=== PATIENT | female | born 1990 | race Hispanic/Latino ===

== ENCOUNTER 2016-09-10 15:45 | Emergency (ER) | payer OTHER ==
[2016-09-10 15:45] VITALS: BMI 32.8
[2016-09-10 16:00] VITALS: RESP 18; TEMP 98.1
--- NOTE | 2016-09-10 16:14 | ED PDOC ---
Arrival/HPI - General Historian: Patient - History of Present Illness Time/Duration: > month Symptom Onset: Gradual Quality: Stabbing (headache), Cramping (abdominal pain) <Lynette Schwartz - Last Filed: 09/10/16 21:49> <Kelly Lopez - Last Filed: 09/28/16 09:28> - General Chief Complaint: GI Problem Time Seen by Provider: 09/10/16 16:05 - History of Present Illness Narrative History of Present Illness (Text): 09/10/16 16:44 26 yo morbidly obese F with active tobacco abuse presents to ER with c/o amenorrhea, abdominal pain, headache, dizziness, nausea, and weight gain. Patient states she has always had irregular menstrual periods. She states she took a Plan B pill at the end of March, the second of such medication she has ever taken (first time, she had no problems with it), and she has not had a menstrual period or any spotting since that time. In the past 4-5 weeks, she has been experiencing lower and epigastric abdominal pain and right-sided headache. Headaches are intermittent, sharp, no tearing, associated with nausea , and occasional blurry vision. Bending over makes them worse. Abdominal pain is described as cramping, no radiation of the pain. Epigastric and lower abdominal pain is worse with food and walking. Patient states food has been taking differently lately, and she states thinks have been taking like metal. She also admits to intermittent nausea, vomiting with food intake resulting in decreased PO intake. Admits to chronic constipation, last BM 2 days ago. Patient denies any changes in diet or lifestyle; she states she has gained approximately 40 pounds over the past 2 months. Admits to cold intolerance x 4- 5 months. Patient denies CP, SOB, SARABIA, edema, rashes, pre-syncope, syncope, pleuritic CP, diarrhea, fevers, chills, confusion. Patient states she saw her PMD, Dr Portillo, who referred her to gynecology and neurology; patient has not followed up yet, states she has a neurology appointment next week and still needs to make a gynecology appointment in [place], where her insurance is accepted. Patient had one vaginal delivery 2005 with no complications. (Lynette Schwartz) Past Medical History - Provider Review Nursing Documentation Reviewed: Yes - Travel History Have you recently traveled outside [place] w/in the past 3 mons?: No - Infectious Disease Hx of Infectious Diseases: None - Tetanus Immunization Tetanus Immunization: Unknown - Past Medical History Past Medical History: No Previous - Hematological/Oncological Hx Blood Disorders: No - Integumentary Hx Dermatological Disorder: No - Musculoskeletal/Rheumatological Hx Musculoskeletal Disorders: No - Gastrointestinal Hx Gastrointestinal Disorders: No - Psychiatric Hx Depression: No Hx Emotional Abuse: No Hx Physical Abuse: No Hx Substance Use: No - Past Surgical History Past Surgical History: No Previous - Anesthesia Hx Anesthesia: No - Suicidal Assessment Feels Threatened In Home Enviroment: No <Lynette Schwartz - Last Filed: 09/10/16 21:49> Family/Social History - Physician Review Nursing Documentation Reviewed: Yes Family/Social History: Diabetes, Other (hypothyroidism) Smoking Status: Heavy Smoker > 10 Cigarettes Daily Hx Alcohol Use: No Hx Substance Use: No Hx Substance Use Treatment: No <Lynette Schwartz - Last Filed: 09/10/16 21:49> Allergies/Home Meds <Lynette Schwartz - Last Filed: 09/10/16 21:49> <Kelly Lopez - Last Filed: 09/28/16 09:28> Allergies/Adverse Reactions: Allergies No Known Allergies Allergy (Verified 09/10/16 16:00) Review of Systems - Physician Review All systems were reviewed & negative as marked: Yes - Review of Systems Constitutional: Weight Change. absent: Fatigue, Fevers Eyes: Vision Changes (occasional blurry vision in right eye with right-sided headaches). absent: Photophobia, Eye Pain ENT: absent: Tinnitus, Sore Throat, Epistaxis Respiratory: absent: SOB, Cough, Sputum Cardiovascular: absent: Chest Pain, Palpitations, Edema, Calf Pain, SARABIA, Syncope Gastrointestinal: Abdominal Pain (epigastric and lower abdomen), Constipation ( last BM 2 days ago), Nausea, Vomiting. absent: Diarrhea, Hematochezia, Hematemesis Genitourinary Female: absent: Dysuria, Frequency, Hematuria, Vaginal Bleeding ( amenorrhea x 5 months) Musculoskeletal: absent: Back Pain, Neck Pain, Joint Swelling Skin: absent: Rash, Skin Lesions Neurological: Headache (right-sided (see HPI)), Dizziness. absent: Focal Weakness, Disequilibrium Endocrine: absent: Diaphoresis, Polyuria Hemo/Lymphatic: absent: Easy Bleeding, Easy Bruising Psychiatric: absent: Anxiety, Depression <Lynette Schwartz - Last Filed: 09/10/16 21:49> Physical Exam Vital Signs Reviewed: Yes Temperature: Afebrile Blood Pressure: Normal Pulse: Regular Respiratory Rate: Normal Appearance: Positive for: Well-Appearing, Non-Toxic, Comfortable Pain Distress: None Mental Status: Positive for: Alert and Oriented X 3 - Systems Exam Head: Present: Atraumatic, Normocephalic Pupils: Present: PERRL Extroacular Muscles: Present: EOMI. No: Gaze Palsy Conjunctiva: Present: Normal. No: Icteric Mouth: Present: Moist Mucous Membranes Neck: Present: Normal Range of Motion. No: Meningeal Signs, JVD Respiratory/Chest: Present: Clear to Auscultation, Good Air Exchange. No: Respiratory Distress, Accessory Muscle Use Cardiovascular: Present: Regular Rate and Rhythm, Normal S1, S2 Abdomen: Present: Tenderness (epigastrium and lower abdomen), Normal Bowel Sounds. No: Distention, Peritoneal Signs, Rebound, Guarding Upper Extremity: Present: Normal Inspection, NORMAL PULSES. No: Cyanosis, Edema Lower Extremity: Present: Normal Inspection, NORMAL PULSES. No: Edema, CALF TENDERNESS Neurological: Present: GCS=15, CN II-XII Intact, Speech Normal Skin: Present: Warm, Dry, Normal Color. No: Rashes Lymphatic: No: Cervical Adenopathy Psychiatric: Present: Alert, Oriented x 3, Normal Insight, Normal Concentration <Lynette Schwartz - Last Filed: 09/10/16 21:49> Medical Decision Making - Lab Interpretations I have reviewed the lab results: Yes <Lynette Schwartz - Last Filed: 09/10/16 21:49> - Lab Interpretations I have reviewed the lab results: Yes <Kelly Lopez - Last Filed: 09/28/16 09:28> ED Course and Treatment: 09/10/16 17:52 26 yo morbidly obese F with active tobacco abuse presents to ER with c/o amenorrhea, abdominal pain, headache, dizziness, nausea, and weight gain. CT head without contrast to evaluate for pituitary lesion. Labs, HCG, abdominal and pelvic US. Zofran, Protonix, IVF. 09/10/16 19:19 Lab and imaging findings discussed with patient. Will send for CT A/P with IV contrast to r/o intrabdominal source of leukocytosis and pain. If CT A/P is negative, patient will need to followup outpatient with Gynecology and neurology as previously instructed for further workup. Patient expressed understanding and is agreement with the aforementioned plan. (Lynette Schwartz) Patient seen and examined with medical assistant dermatology. On exam, neurologically intact with no focal weakness, no peritoneal abdominal signs, cv stable. Symptoms reviewed extensively, discussed with her in length need for endocrinologic workup as weel as limitations of CT studies. She is comfortable on re-exam, no distress noted, discussed with PMD need for follow-up she has been referred to specialists. (Kelly Lopez) - Lab Interpretations Microbiology Results: Microbiology Results 09/10/16 18:21 Urine Urine Culture - Final No Growth (<1,000 CFU/ML) Lab Results: 09/10/16 17:35 09/10/16 17:35 Lab Results 09/10/16 18:19: Urine Color Yellow, Urine Appearance Clear, Urine pH 6.0, Ur Specific [place] 1.025, Urine Protein Negative, Urine Glucose (UA) Negative, Urine Ketones Negative, Urine Blood Negative, Urine Nitrate Negative, Urine Bilirubin Negative, Urine Urobilinogen 0.2, Ur Leukocyte Esterase Negative, Urine HCG, Qual Negative 09/10/16 17:35: Free T4 0.96, TSH 3rd Generation 2.56, Beta HCG, Quant < 2.39 09/10/16 17:35: Sodium 138, Potassium 4.1, Chloride 100, Carbon Dioxide 28, Anion Gap 14, BUN 13, Creatinine 0.8, Est GFR ( Amer) > 60, Est GFR (Non- Af Amer) > 60, Random Glucose 78, Calcium 10.0, Total Bilirubin 0.6, AST 26, ALT 38, Alkaline Phosphatase 102, Total Protein 8.7 H, Albumin 4.4, Globulin 4.4 , Albumin/Globulin Ratio 1.0 L, Lipase 69 09/10/16 17:35: PT 10.3, INR 0.95, APTT 24.8 09/10/16 17:35: WBC 17.7 H, RBC 4.84, Hgb 15.3, Hct 42.0, MCV 86.8, MCH 31.6, MCHC 36.4, RDW 12.3, Plt Count 405, MPV 9.7, Gran % 67.6, Lymph % (Auto) 22.0, [place] % (Auto) 9.0 H, Eos % (Auto) 1.2 L, Baso % (Auto) 0.2, Gran # 11.99 H, Lymph # 3.9 H, [place] # 1.6 H, Eos # 0.2, Baso # 0.03 - RAD Interpretation Radiology Orders: 09/10/16 16:50 HEAD W/O CONTRAST [CT] Stat 09/10/16 16:57 ABDOMEN COMPLETE [US] Stat PELVIS ULTRASOUND [US] Routine 09/10/16 19:03 ABD & PELVIS IV CONTRAST ONLY [CT] Stat - Medication Orders Current Medication Orders: Discontinued Medications Sodium Chloride (Sodium Chloride 0.9%) 1,000 mls @ 999 mls/hr IV .Q1H1M STA Stop: 09/10/16 17:50 Last Admin: 09/10/16 17:38 Dose: 999 mls/hr Iohexol (Omnipaque 350 100 Ml) Confirm Administered Dose 350 mg .ROUTE .STK-MED ONE Stop: 09/10/16 19:23 Meclizine HCl (Antivert) 25 mg PO STAT STA Stop: 09/10/16 19:28 Last Admin: 09/10/16 19:35 Dose: 25 mg Ondansetron HCl (Zofran Inj) 4 mg IVP ONCE ONE Stop: 09/10/16 16:51 Last Admin: 09/10/16 17:38 Dose: 4 mg Pantoprazole Sodium (Protonix Inj) 40 mg IVP STAT STA Stop: 09/10/16 16:51 Last Admin: 09/10/16 17:38 Dose: 40 mg ED OBSERVATION <Lynette Schwartz - Last Filed: 09/10/16 21:49> Date of observation admission: 09/10/16 Time of observation admission: 16:30 <Kelly Lopez - Last Filed: 09/28/16 09:28> - Observation admission statement Patient is being placed in observation because:: abdominal pain (Kelly Lopez) - Goals of Observation Goals of observation are:: pain management and obtain series of abdominal examinations (Kelly Lopez) - Progress Note Progress Note: 09/10/16 16:30 Patient seen and examined with resident. Came up with treatment and disposition plan with resident. The patient is a 26 year old female with multiple complaints. She complains of amenorrhea, abdominal pain, headache, dizziness, nausea and weight gain. Additional HPI details as noted by the resident. Physical examinations reveals some tenderness with palpation to the epigastric and lower abdomen. Head CT, Abdomen/Pelvic ultrasound, Labs and HCG Beta ordered to rule out intracranial mass/abnormalities vs. infections vs. vs. ovarian cyst. Patient given Protonix, Zofran and IV Fluids for symptom management. 09/10/16 18:[address]: Creator : David Moctezuma MD COMPARISON: None available. FINDINGS: HEMORRHAGE: No intracranial hemorrhage. BRAIN: No mass effect or edema. No atrophy or chronic microvascular ischemic changes. VENTRICLES: Unremarkable. No hydrocephalus. CALVARIUM: Unremarkable. PARANASAL SINUSES: Unremarkable as visualized. No significant inflammatory changes. MASTOID AIR CELLS: Unremarkable as visualized. No inflammatory changes. OTHER FINDINGS: None. IMPRESSION: Normal CT of the Head. 09/10/16 19:00 Abdomen Ultrasound: Creator : Nathan Boyd MD COMPARISON: None. FINDINGS: LIVER: Measures 14.9 cm. Hepatopedal blood flow. Fatty infiltration manifest ultrasonographically as increased echogenicity of the liver parenchyma. No mass. No intrahepatic bile duct dilatation. GALLBLADDER: Unremarkable. No gallstones. COMMON BILE DUCT: Measures 2.6 mm. No stones. No dilatation. PANCREAS: Unremarkable as visualized. No mass. No ductal dilatation. RIGHT KIDNEY: Measures 3.5 x 9.2cm. Normal echogenicity. No calculus, mass, or hydronephrosis. LEFT KIDNEY: Measures 5.5 x 11.3cm. Normal echogenicity. No calculus, mass, or hydronephrosis. SPLEEN: Normal in size and contour. No mass. AORTA: No aneurysmal dilatation. IVC: Unremarkable. OTHER FINDINGS: None. IMPRESSION: Hepatic steatosis. No focal masses. No intrahepatic bile duct dilatation or perihepatic ascites. 09/10/16 19:03 On reevaluation, the patient still complains of persistent pain. Patient has a elevated WBC count of 17. Will obtain abdomen CT due to leukocytosis and persistent pain. 09/10/16 21:00 Pelvis Ultrasound: Dictated and Authenticated by: Brian Zuleta MD COMPARISON: No relevant prior studies available. FINDINGS: Uterus/cervix: Uterus measures 7.9 x 2.6 x 4.1 cm in size. No myometrial mass. Endometrium: 0.5 cm in thickness. Right ovary: 2.7 x 1.9 x 3.3 cm in size. No mass. Normal flow. Left ovary: 4.0 x 2.8 x 1.5 cm in size. No mass. Normal flow. Free fluid: No significant free fluid. Bladder: Unremarkable as visualized. IMPRESSION: 1. No acute findings. 2. Non-acute findings are described above. Abdomen/Pelvis CT: Dictated and Authenticated by: Phil Mckee MD COMPARISON: US - PELVIS ULTRASOUND 09/10/2016 6:18:31 PM FINDINGS: Lower thorax: Minimal atelectasis in the bases. ABDOMEN: Liver: There is mild fatty infiltration of the liver Gallbladder and bile ducts: Unremarkable. No calcified stones. No ductal dilation. Pancreas: Unremarkable. No mass. No ductal dilation. Spleen: Unremarkable. No splenomegaly. Adrenals: Unremarkable. No mass. Kidneys and ureters: Unremarkable. No solid mass. No hydronephrosis. Stomach and bowel: Unremarkable. No obstruction. No mucosal thickening. Appendix: No findings to suggest acute appendicitis. PELVIS: Bladder: Unremarkable. No mass. Reproductive: Unremarkable as visualized. ABDOMEN and PELVIS: Intraperitoneal space: Unremarkable. No free air. No significant fluid collection. Bones/joints: No acute fracture. No dislocation. Soft tissues: Unremarkable. Vasculature: Unremarkable. No abdominal aortic aneurysm. Lymph nodes: Unremarkable. No enlarged lymph nodes. IMPRESSION: No acute findings. Mild fatty liver (Kelly Lopez) <Lynette Schwartz - Last Filed: 09/10/16 21:49> - Scribe Statement The provider has reviewed the documentation as recorded by the Scribe <Kelly Lopez - Last Filed: 09/28/16 09:28> - Scribe Statement Carmine Truong Provider Scribe Attestation: All medical record entries made by the Scribe were at my direction and personally dictated by me. I have reviewed the chart and agree that the record accurately reflects my personal performance of the history, physical exam, medical decision making, and the department course for this patient. I have also personally directed, reviewed, and agree with the discharge instructions and disposition. (Kelly Lopez) Disposition/Present on Arrival - Present on Arrival Any Indicators Present on Arrival: No History of DVT/PE: No History of Uncontrolled Diabetes: No Urinary Catheter: No History of Decub. Ulcer: No History Surgical Site Infection Following: None - Disposition Have Diagnosis and Disposition been Completed?: Yes Disposition Time: 21:31 Patient Plan: Discharge <MandiekylerLynette walters - Last Filed: 09/10/16 21:49> <Kelly Lopez - Last Filed: 09/28/16 09:28> - Disposition Diagnosis: Abdominal pain, Amenorrhea Disposition: HOME/ ROUTINE Condition: STABLE Discharge Instructions (ExitCare): Acute Abdominal Pain (ED), Abdominal Pain ( ED), Amenorrhea (GEN) Print Language: HONDURAN Additional Instructions: Please followup with your primary care physician within 1-3 days. Please followup with gynecology and neurology as previously scheduled. Referrals: Pedro Portillo JD, MD [Primary Care Provider] - Follow up with primary
[2016-09-10] MEDS ORDERED: Sodium Chloride 0.9% 1,000 ML IV STA (16:50)
[2016-09-10 17:43] LABS: ADD MANUAL DIFF? NO
[2016-09-10 17:47] LABS: BASO # 0.03 K/mm3 (0.0-2.0); BASO % 0.2 % (0.0-3.0); EOS # 0.2 (0.0-0.7); EOS % 1.2 % (1.5-5.0); GRAN # 11.99 (1.4-6.5); GRAN % 67.6 % (50.0-68.0); LYMPH # 3.9 (1.2-3.4); MEAN CELL VOLUME 86.8 fL (80.0-105.0); MEAN CORPUSCULAR HEMOGLOBIN 31.6 pg (25.0-35.0); MEAN CORPUSCULAR HGB CONC 36.4 g/dl (31.0-37.0); MEAN PLATELET VOLUME 9.7 fl (7.0-11.0); MONO # 1.6 (0.1-0.6); PLATELET COUNT 405 10^3/uL (120.0-450.0); RED CELL DISTRIBUTION WIDTH 12.3 % (11.5-14.5); WHITE BLOOD COUNT 17.7 10^3/ul (4.5-11.0)
[2016-09-10 17:56] LABS: ALKALINE PHOSPHATASE 102 U/L (38-133); ALT/SGPT 38 U/L (7-56); AST/SGOT 26 U/L (15-39); BILIRUBIN,TOTAL 0.6 mg/dL (0.2-1.3); BLOOD UREA NITROGEN 13 mg/dL (7-21); CARBON DIOXIDE 28 mmol/L (21-33); CHLORIDE 100 mmol/L (98-107); GFR AFRICAN-AMERICAN > 60; GLUCOSE,RANDOM 78 mg/dL (70-110); LIPASE 69 U/L (23-300); POTASSIUM 4.1 mmol/L (3.6-5.0); SODIUM 138 mmol/L (132-148); TOTAL PROTEIN 8.7 g/dL (5.8-8.3)
[2016-09-10 17:59] LABS: INR 0.95 (0.93-1.08); PARTIAL THROMBOPLASTIN TIME 24.8 Seconds (23.7-30.8)
--- NOTE | 2016-09-10 18:03 | CT ---
PROCEDURE: CT HEAD WITHOUT CONTRAST. HISTORY: headache, dizziness COMPARISON: None available. TECHNIQUE: Axial computed tomography images were obtained through the head/brain without intravenous contrast. Radiation dose: Total exam DLP = 787 mGy-cm. This CT exam was performed using one or more of the following dose reduction techniques: Automated exposure control, adjustment of the mA and/or kV according to patient size, and/or use of iterative reconstruction technique. FINDINGS: HEMORRHAGE: No intracranial hemorrhage. BRAIN: No mass effect or edema. No atrophy or chronic microvascular ischemic changes. VENTRICLES: Unremarkable. No hydrocephalus. CALVARIUM: Unremarkable. PARANASAL SINUSES: Unremarkable as visualized. No significant inflammatory changes. MASTOID AIR CELLS: Unremarkable as visualized. No inflammatory changes. OTHER FINDINGS: None. IMPRESSION: Normal CT of the Head.
[2016-09-10 18:13] LABS: FREE T4 0.96 ng/dL (0.78-2.19)
[2016-09-10 18:27] LABS: THYROID STIMULATING HORMONE 2.56 mIU/mL (0.46-4.68)
[2016-09-10 18:37] LABS: URINE BILIRUBIN NEGATIVE (NEGATIVE); URINE BLOOD NEGATIVE (NEGATIVE); URINE GLUCOSE (UA) NEGATIVE (NEGATIVE); URINE KETONE NEGATIVE (NEGATIVE); URINE LEUKOCYTE ESTERASE NEGATIVE Leu/uL (NEGATIVE); URINE PROTEIN NEGATIVE mg/dL (<30 mg/dL); URINE UROBILINOGEN 0.2 E.U./dL (<1 E.U./dL)
[2016-09-10 18:38] LABS: URINE APPEARANCE CLEAR (CLEAR); URINE COLOR YELLOW (YELLOW)
--- NOTE | 2016-09-10 18:53 | US ---
HISTORY: Unspecified abdominal pain. COMPARISON: None. TECHNIQUE: Sonographic evaluation of the abdomen. FINDINGS: LIVER: Measures 14.9 cm. Hepatopedal blood flow. Fatty infiltration manifest ultrasonographically as increased echogenicity of the liver parenchyma. No mass. No intrahepatic bile duct dilatation. GALLBLADDER: Unremarkable. No gallstones. COMMON BILE DUCT: Measures 2.6 mm. No stones. No dilatation. PANCREAS: Unremarkable as visualized. No mass. No ductal dilatation. RIGHT KIDNEY: Measures 3.5 x 9.2cm. Normal echogenicity. No calculus, mass, or hydronephrosis. LEFT KIDNEY: Measures 5.5 x 11.3cm. Normal echogenicity. No calculus, mass, or hydronephrosis. SPLEEN: Normal in size and contour. No mass. AORTA: No aneurysmal dilatation. IVC: Unremarkable. OTHER FINDINGS: None. IMPRESSION: Hepatic steatosis. No focal masses. No intrahepatic bile duct dilatation or perihepatic ascites.
[2016-09-10] MEDS ORDERED: Iohexol 350 MG/100 ML VIAL ONE (19:22)
[2016-09-10 20:16] VITALS: BP 124/71; PULSE 74; O2SAT 100
--- NOTE | 2016-09-10 20:59 | US ---
EXAM: US Pelvis Complete, Transabdominal CLINICAL HISTORY: 26 years old, female; Pain; Abdominal pain and pelvic pain; Lower abdomen; Additional info: Abd pain, amennorhea TECHNIQUE: Real-time transabdominal pelvic ultrasound (complete) with image documentation. COMPARISON: No relevant prior studies available. FINDINGS: Uterus/cervix: Uterus measures 7.9 x 2.6 x 4.1 cm in size. No myometrial mass. Endometrium: 0.5 cm in thickness. Right ovary: 2.7 x 1.9 x 3.3 cm in size. No mass. Normal flow. Left ovary: 4.0 x 2.8 x 1.5 cm in size. No mass. Normal flow. Free fluid: No significant free fluid. Bladder: Unremarkable as visualized. IMPRESSION: 1.No acute findings. 2.Non-acute findings are described above.
--- NOTE | 2016-09-11 07:31 | CT ---
PROCEDURE: CT Abdomen and Pelvis with contrast HISTORY: abdominal pain, leukocytosis COMPARISON: None available. TECHNIQUE: Contrast dose: 100 mL Omnipaque 350 Radiation dose: Total exam DLP = 1272.62 mGy-cm. This CT exam was performed using one or more of the following dose reduction techniques: Automated exposure control, adjustment of the mA and/or kV according to patient size, and/or use of iterative reconstruction technique. FINDINGS: LOWER THORAX: Minimal dependent atelectasis. No visible pleural effusion or pneumothorax. LIVER: Mild hypoattenuation of the liver compatible with hepatic steatosis. GALLBLADDER AND BILE DUCTS: Unremarkable. PANCREAS: Unremarkable. SPLEEN: 10 mm and 11 mm probable splenules. Otherwise unremarkable. ADRENALS: Unremarkable. KIDNEYS AND URETERS: The kidneys enhance symmetrically. No hydronephrosis or obstructing calculus evident. VASCULATURE: No aortic aneurysm. BOWEL: Stomach is nondistended. Lack of oral contrast limits evaluation for bowel pathology. Bowel loops appear within normal limits of caliber without evidence of obstruction. APPENDIX: Appendix is not identified. No secondary signs of acute appendicitis. PERITONEUM: With up LYMPH NODES: No bulky adenopathy identified. BLADDER: Marked underdistention of the urinary bladder precludes adequate evaluation. Thick-walled appearance of the bladder likely exaggerated by under distension. REPRODUCTIVE: The uterus is present. BONES: No acute osseous abnormality is detected. OTHER FINDINGS: None. IMPRESSION: Thick-walled urinary bladder presumably due to underdistention. Correlate clinically and consider urinalysis if necessary in order to exclude possibility of cystitis. Hepatic steatosis. Preliminary impression was provided by virtual radiologic.
[2016-09-11 11:33] LABS: FT3 4.03 pg/mL (2.77-5.27)
== END 2016-09-10 21:45 | disposition home or self-care (01) ==
LOC: ED 15:45
DX: R10.9 Unspecified abdominal pain (principal); N91.2 Amenorrhea, unspecified
CPT/HCPCS: 70450; 74177; 76700; 76856; 80053; 81003; 83690; 84439; 84443; 84481; 84702; 84703; 85025; 85610; 85730; 87086; 96361; 96374; 96375; 99284; C9113; J2405; J7040; Q9967

== ENCOUNTER 2016-10-28 10:40 | Emergency (ER) | payer OTHER ==
[2016-10-28 10:40] VITALS: BMI 32.8
[2016-10-28 10:48] VITALS: TEMP 97.9
--- NOTE | 2016-10-28 11:16 | CT ---
PROCEDURE: CT HEAD WITHOUT CONTRAST. HISTORY: Code Stroke COMPARISON: 09/10/2016 TECHNIQUE: Axial computed tomography images were obtained through the head/brain without intravenous contrast. Radiation dose: Total exam DLP = 688 mGy-cm. This CT exam was performed using one or more of the following dose reduction techniques: Automated exposure control, adjustment of the mA and/or kV according to patient size, and/or use of iterative reconstruction technique. FINDINGS: HEMORRHAGE: No intracranial hemorrhage. BRAIN: No mass effect or edema. No atrophy or chronic microvascular ischemic changes. VENTRICLES: Unremarkable. No hydrocephalus. CALVARIUM: Unremarkable. PARANASAL SINUSES: Unremarkable as visualized. No significant inflammatory changes. MASTOID AIR CELLS: Unremarkable as visualized. No inflammatory changes. OTHER FINDINGS: None. IMPRESSION: Normal CT of the Head.
[2016-10-28 11:28] LABS: ADD MANUAL DIFF? NO
[2016-10-28 11:29] LABS: BASO # 0.03 K/mm3 (0.0-2.0); BASO % 0.2 % (0.0-3.0); EOS # 0.2 (0.0-0.7); EOS % 1.7 % (1.5-5.0); GRAN # 9.76 (1.4-6.5); GRAN % 67.5 % (50.0-68.0); LYMPH # 3.4 (1.2-3.4); LYMPH % 23.8 % (22.0-35.0); MEAN CELL VOLUME 88.2 fL (80.0-105.0); MEAN CORPUSCULAR HEMOGLOBIN 31.4 pg (25.0-35.0); MEAN CORPUSCULAR HGB CONC 35.6 g/dl (31.0-37.0); MEAN PLATELET VOLUME 9.7 fl (7.0-11.0); MONO % 6.8 % (1.0-6.0); PLATELET COUNT 343 10^3/uL (120.0-450.0); RED CELL DISTRIBUTION WIDTH 12.4 % (11.5-14.5); WHITE BLOOD COUNT 14.5 10^3/ul (4.5-11.0)
[2016-10-28 11:40] LABS: INR 0.99 (0.93-1.08); PARTIAL THROMBOPLASTIN TIME 30.7 Seconds (23.7-30.8)
[2016-10-28 11:41] LABS: ALB/GLOB RATIO 1.1 (1.1-1.8); ALKALINE PHOSPHATASE 90 U/L (38-133); ALT/SGPT 47 U/L (7-56); AST/SGOT 36 U/L (15-39); BILIRUBIN,TOTAL 0.4 mg/dL (0.2-1.3); BLOOD UREA NITROGEN 11 mg/dL (7-21); CALCIUM 9.2 mg/dL (8.4-10.5); CARBON DIOXIDE 23 mmol/L (21-33); CHLORIDE 106 mmol/L (98-107); CHOLESTEROL 143 mg/dL (130-200); GFR AFRICAN-AMERICAN > 60; GLUCOSE,RANDOM 101 mg/dL (70-110); POTASSIUM 3.9 mmol/L (3.6-5.0); SODIUM 138 mmol/L (132-148); TOTAL PROTEIN 7.6 g/dL (5.8-8.3)
[2016-10-28 11:54] LABS: TROPONIN I < 0.01 ng/mL
--- NOTE | 2016-10-28 11:54 | ED PDOC ---
Arrival/HPI - General Chief Complaint: Syncope Time Seen by Provider: 10/28/16 10:53 Historian: Patient - History of Present Illness Narrative History of Present Illness (Text): 10/28/16 10:51 A 26 year old female, whose past medical history includes "some kind of neurological issue," who presents to the emergency department complaining of a headache that shoots up from the neck up and into the right eye. Patient reports headache has been present for the past two week but worsen last night. She took a Advil last night and this morning for the pain. Patient say last night she felt a "pop" in the head but she was able to go to sleep without difficulty. Patient notes this morning she developed some dizziness and then while walking to the light rail she started to get blurry vision of the right eye, started to feel weak on the right side and then syncopized. Patient believe she only lost consciousness for about a minute. She denies any headache trauma. Patient says currently the light and noise is bother her. She denies any fever, chills, change in speech, numbness or any other complaints at this time. PMD: Dr. Portillo Time/Duration: > week Symptom Onset: Sudden Symptom Course: Worsening Quality: Other Activities at Onset: Rest Context: Home Past Medical History - Provider Review Nursing Documentation Reviewed: Yes - Infectious Disease Hx of Infectious Diseases: None - Tetanus Immunization Tetanus Immunization: Unknown - Past Medical History Past Medical History: No Previous - Hematological/Oncological Hx Blood Disorders: No - Integumentary Hx Dermatological Disorder: No - Musculoskeletal/Rheumatological Hx Musculoskeletal Disorders: No - Gastrointestinal Hx Gastrointestinal Disorders: No - Psychiatric Hx Depression: No Hx Emotional Abuse: No Hx Physical Abuse: No Hx Substance Use: No - Past Surgical History Past Surgical History: No Previous - Anesthesia Hx Anesthesia: No - Suicidal Assessment Feels Threatened In Home Enviroment: No Family/Social History - Physician Review Nursing Documentation Reviewed: Yes Family/Social History: Unknown Family HX Smoking Status: Heavy Smoker > 10 Cigarettes Daily Hx Alcohol Use: No Hx Substance Use: No Hx Substance Use Treatment: No Allergies/Home Meds Allergies/Adverse Reactions: Allergies No Known Allergies Allergy (Verified 10/28/16 10:42) Home Medications: Home Meds Medication Instructions Recorded Confirmed No Known Home Med 10/28/16 10/28/16 Review of Systems - Physician Review All systems were reviewed & negative as marked: Yes - Review of Systems Constitutional: absent: Fevers Eyes: Vision Changes, Photophobia Respiratory: absent: SOB Cardiovascular: Syncope. absent: Chest Pain Neurological: Headache, Dizziness, Focal Weakness (right side). absent: Speech Changes Physical Exam Vital Signs Reviewed: Yes Vital Signs Temp Pulse Resp BP Pulse Ox 10/28/16 13:10 67 18 139/59 L 98 10/28/16 11:25 66 16 138/78 98 10/28/16 10:43 97.9 F 79 16 135/87 98 Temperature: Afebrile Blood Pressure: Normal Pulse: Regular Respiratory Rate: Normal Appearance: Positive for: Well-Appearing, Non-Toxic, Comfortable Pain Distress: None Mental Status: Positive for: Alert and Oriented X 3 Finger Stick Blood Glucose: 107 - Systems Exam Head: Present: Atraumatic, Normocephalic Pupils: Present: PERRL Extroacular Muscles: Present: EOMI Conjunctiva: Present: Normal Ears: Present: Normal, NORMAL TM Mouth: Present: Moist Mucous Membranes Pharnyx: Present: Normal. No: ERYTHEMA Nose (Internal): Present: Normal Inspection Neck: Present: Normal Range of Motion. No: Bruit Respiratory/Chest: Present: Clear to Auscultation, Good Air Exchange. No: Respiratory Distress, Accessory Muscle Use Cardiovascular: Present: Regular Rate and Rhythm, Normal S1, S2. No: Murmurs Abdomen: Present: Normal Bowel Sounds. No: Tenderness, Distention, Peritoneal Signs Back: Present: Normal Inspection Upper Extremity: Present: Normal Inspection, Normal ROM, NORMAL PULSES, Neurovascularly Intact. No: Cyanosis, Edema Lower Extremity: Present: Normal Inspection, NORMAL PULSES, Normal ROM, Neurovascularly Intact. No: Edema Neurological: Present: GCS=15, CN II-XII Intact, Speech Normal, Motor Func Grossly Intact, Normal Sensory Function, Normal Cerebellar Funct, Gait Normal, Memory Normal, Normal 2Pt Descrimination Skin: Present: Warm, Dry, Normal Color. No: Rashes Psychiatric: Present: Alert, Oriented x 3, Normal Insight, Normal Concentration Medical Decision Making ED Course and Treatment: 10/28/16 10:51 Impression: A 26 year old female with headache, dizziness, syncope, vision changes and right sided weakness. Differential Diagnosis include but are not limited to: CVA vs Headache/Migraine vs Syncope Plan: -- EKG -- Head CT -- Chest X-ray -- Labs -- Reassess and disposition Prior Visits: Notes and results from previous visits were reviewed. The patient last presented to the emergency department on 09/10/16 for evaluation of amenorrhea, abdominal pain, headache, dizziness, nausea and weight gain. Progress Notes: EKG: Ordered, reviewed, and independently interpreted the EKG. Rate : 78 BPM Rhythm : NSR Interpretation : No ST-segment elevations or depressions, no T-wave inversions, normal intervals. 10/28/16 10:58 Code Stroke called secondary to new evolving symptoms even though headache was not new. 10/28/16 11:[address]: Creator : David Moctezuma MD COMPARISON: 09/10/2016 FINDINGS: HEMORRHAGE: No intracranial hemorrhage. BRAIN: No mass effect or edema. No atrophy or chronic microvascular ischemic changes. VENTRICLES: Unremarkable. No hydrocephalus. CALVARIUM: Unremarkable. PARANASAL SINUSES: Unremarkable as visualized. No significant inflammatory changes. MASTOID AIR CELLS: Unremarkable as visualized. No inflammatory changes. OTHER FINDINGS: None. IMPRESSION: Normal CT of the Head. 10/28/16 11:[address] Shayla Porras, who is agrees with plan and recommends MRI without and with contrast and MRA of the head and neck without contrast. Patient is not a tPA candidate do to fast resolution of symptoms and NIHSS score of 0. On arrival she no longer had the right eye blurry vision but still had some sensation of weakness of right body . 5/5 MS. No drift. 10/28/16 12:20 Chest X-ray: Creator : David Moctezuma MD COMPARISON: No prior. FINDINGS: LUNGS: No active pulmonary disease. PLEURA: No significant pleural effusion identified, no pneumothorax apparent. CARDIOVASCULAR: Normal. OSSEOUS STRUCTURES: No significant abnormalities. VISUALIZED UPPER ABDOMEN: Normal. OTHER FINDINGS: None. IMPRESSION: No active disease. 10/28/16 13:10 MRI Brain: Creator : David Moctezuma MD COMPARISON: None. FINDINGS: HEMORRHAGE: None DWI: No evidence of an acute or early subacute infarction. BRAIN PARENCHYMA: No mass,mass effect or edema. No atrophy or chronic microvascular ischemic changes. ENHANCEMENT: No abnormal intracranial enhancement. VENTRICLES: Unremarkable. No hydrocephalus. CRANIUM: Unremarkable. ORBITS: Grossly unremarkable. PARANASAL SINUSES/MASTOIDS: Clear VASCULAR SYSTEM: Skull base flow voids intact. OTHER FINDINGS: None . IMPRESSION: Unremarkable pre and post contrast enhanced MRI of the brain. 10/28/16 13:11 MRA Brain: Creator : David Moctezuma MD COMPARISON: None available. FINDINGS: INTERNAL CEREBRAL ARTERIES: Unremarkable. The skull base, petrous, cavernous and supraclinoid segments are bilaterally widely patient. ANTERIOR CEREBRAL ARTERIES: Unremarkable. A1 and A2 segments are widely patent. Smaller distal branches unremarkable, as visualized. MIDDLE CEREBRAL ARTERIES: Unremarkable. M1 and M2 segments are widely patent. Perisylvian branches grossly symmetric. POSTERIOR CIRCULATION: Basilar Artery: Unremarkable. Distal Vertebral Arteries: Unremarkable. Posterior Cerebral Arteries: Unremarkable. Posterior Inferior Cerebellar Arteries: Unremarkable. ANEURYSM/ VASCULAR MALFORMATIONS: None. OTHER FINDINGS: None. IMPRESSION: Unremarkable MR angiography of the brain. 10/28/16 13:13 MRA Neck: Creator : David Moctezuma MD COMPARISON: None available. FINDINGS: RIGHT CAROTID ARTERIES: Common Carotid Artery: Normal. Carotid Bifurcation: Normal. Internal Carotid Artery:Normal. External Carotid Artery (proximal branches): Normal. LEFT CAROTID ARTERIES: Common Carotid Artery: Normal. Carotid Bifurcation: Normal. Internal Carotid Artery:Normal. External Carotid Artery (proximal branches): Normal. VERTEBRAL ARTERIES: Right Vertebral Artery: Normal. Left Vertebral Artery: Normal. OTHER FINDINGS: None. IMPRESSION: Normal MR Angiography of the neck. 10/28/16 13:32 On re-evaluation, the patient feels better and is in no acute distress. NIHSS repeat is Zero. No longer has sensation of right sided weakness after given treatment for her headache. She improved with Benadryl, Reglan, and Tylenol. I have discussed the results and plan with the patient, who expresses understanding. Patient in agreement with plan to discharged home.She has a neurologist appt already set up for tomorrow and she will make sure to follow up. She will take copies of her imaging that was completed here. Copies of reports were also given to patient. Patient is stable for discharge. Patient was instructed to follow up with physician/clinic in 1-2 days or return if symptoms worsen or new concerning symptoms arise. - Critical Care Critical Care Minutes: 30 minutes - Lab Interpretations Lab Results: 10/28/16 11:27 10/28/16 11:27 Lab Results 10/28/16 11:52: Blood Type Confirm O POSITIVE 10/28/16 11:27: Blood Type O POSITIVE, Antibody Screen Positive, Antibody Identification Inconclusive Panel, BBK History Checked No verified bt 10/28/16 11:27: Sodium 138, Potassium 3.9, Chloride 106, Carbon Dioxide 23, Anion Gap 13, BUN 11, Creatinine 0.8, Est GFR ( Amer) > 60, Est GFR (Non- Af Amer) > 60, Random Glucose 101, Calcium 9.2, Total Bilirubin 0.4, AST 36, ALT 47, Alkaline Phosphatase 90, Troponin I < 0.01, Total Protein 7.6, Albumin 3.9, Globulin 3.7, Albumin/Globulin Ratio 1.1, Triglycerides 187 H, Cholesterol 143, LDL Cholesterol Direct 47, HDL Cholesterol 30 10/28/16 11:27: PT 10.7, INR 0.99, APTT 30.7 10/28/16 11:27: WBC 14.5 H, RBC 4.42, Hgb 13.9, Hct 39.0, MCV 88.2, MCH 31.4, MCHC 35.6, RDW 12.4, Plt Count 343, MPV 9.7, Gran % 67.5, Lymph % (Auto) 23.8, [place] % (Auto) 6.8 H, Eos % (Auto) 1.7, Baso % (Auto) 0.2, Gran # 9.76 H, Lymph # 3.4, [place] # 1.0 H, Eos # 0.2, Baso # 0.03 I have reviewed the lab results: Yes Interpretation: No clinic. lab abnormalty (WBC 14. No fever, No cough, No urinary symptoms. No history of infectious etiology.) - RAD Interpretation Radiology Orders: 10/28/16 10:58 HEAD W/O (CODE STROKE) [CT] Stat CHEST PORTABLE [RAD] Stat 10/28/16 11:23 BRAIN W & WO CONTRAST [MRI] Stat MRA HEAD WITHOUT CONTRAST [MRI] Stat MRA NECK WITHOUT CONTRAST [MRI] Stat - Medication Orders Current Medication Orders: Discontinued Medications Aspirin (Ecotrin) 325 mg PO STAT STA Stop: 10/28/16 13:58 Last Admin: 10/28/16 14:13 Dose: 325 mg Diphenhydramine HCl (Benadryl) 25 mg IVP STAT STA Stop: 10/28/16 13:58 Last Admin: 10/28/16 14:13 Dose: 25 mg Gadodiamide ( Omniscan) Confirm Administered Dose 5,740 mg IV .STK-MED ONE Stop: 10/28/16 12:48 Metoclopramide HCl (Reglan) 10 mg IVP STAT STA Stop: 10/28/16 13:58 Last Admin: 10/28/16 14:13 Dose: 10 mg NIHSS Scale ([place]) Time Performed: 10:51 - How Severe is the Stoke Baseline Level of Consciousness: 0=Alert LOC to Questions: 0=Both comments correct LOC to commands: 0=Obeys both correctly Best Gaze: 0=Normal Visual: 0=No visual loss Facial: 0=Normal Motor Arm - Left: 0=No drift Motor Arm - Right: 0=No drift Motor Leg - Left: 0=No drift Motor Leg - Right: 0=No drift Limb Ataxia: 0=Absent Sensory: 0=Normal Best Language: 0=No aphasia Dysarthia: 0=Normal articulation Extinction & Inattention (Neglect): 0=Normal, no object Score: 0 Risk Level: No Stroke Risk NIHSS Scale([place]) 2 Time Performed: 03:50 - How Severe is the Stoke Baseline Level of Consciousness: 0=Alert LOC to Questions: 0=Both comments correct LOC to commands: 0=Obeys both correctly Best Gaze: 0=Normal Visual: 0=No visual loss Facial: 0=Normal Motor Arm - Left: 0=No drift Motor Arm - Right: 0=No drift Motor Leg - Left: 0=No drift Motor Leg - Right: 0=No drift Limb Ataxia: 0=Absent Sensory: 0=Normal Best Language: 0=No aphasia Dysarthia: 0=Normal articulation Extinction & Inattention (Neglect): 0=Normal, no object Score: 0 Risk Level: No Stroke Risk rTPA Inclusion/Exclusion - Refusal of Treatment Patient Refused Treatment: No - Inclusion Criteria for Altepase Patient is 18 years or Older: Yes The Clinical Diagnosis of Ischemic Stroke That is Causing a Potentially Disabling Neurological Deficit: Yes Time of Onset is Well Established to be Less Than 270 Minute Before Treatment Would Begin: Yes Risk/Benefit Discussed With Patient/Family Member Present: No - Scribe Statement The provider has reviewed the documentation as recorded by the [place] Provider Scribe Attestation: All medical record entries made by the Scribe were at my direction and personally dictated by me. I have reviewed the chart and agree that the record accurately reflects my personal performance of the history, physical exam, medical decision making, and the department course for this patient. I have also personally directed, reviewed, and agree with the discharge instructions and disposition. Disposition/Present on Arrival - Present on Arrival Any Indicators Present on Arrival: No History of DVT/PE: No History of Uncontrolled Diabetes: No Urinary Catheter: No History of Decub. Ulcer: No History Surgical Site Infection Following: None - Disposition Have Diagnosis and Disposition been Completed?: Yes Diagnosis: Headache Disposition: HOME/ ROUTINE Disposition Time: 13:32 Patient Plan: Discharge Patient Problems: Current Active Problems Problem Status Onset Headache Acute Condition: IMPROVED Discharge Instructions (ExitCare): Migraine Headache (ED) Additional Instructions: Mr Marks, thank you for letting us take care of you today. Your provider was Dr. Molina. You were treated for Headache. The emergency medical care you received today was directed at your acute symptoms. If you were prescribed any medication, please fill it and take as directed. It may take several days for your symptoms to resolve. Return to the Emergency Department if your symptoms worsen, do not improve, or if you have any other problems. Please contact your doctor or call one of the physicians/clinics you have been referred to that are listed on the Patient Visit Information form that is included in your discharge packet. Bring any paperwork you were given at discharge with you along with any medications you are taking to your follow up visit. Our treatment cannot replace ongoing medical care by a primary care provider (PCP) outside of the emergency department. Thank you for allowing the [facility] team to be part of your care today. If you had an X-Ray or CT scan: A Radiologist will review the ED reading if any change in treatment is needed we will contact you. If you had a blood, urine, or wound culture: It will take several days for the results, if any change in treatment is needed we will contact you. If you had an STI test: It will take 48 hours for the results. Please call after 1 week if you have not heard back. Referrals: [facility] [Outside] - Follow up with primary Pedro Portillo JD, MD [Primary Care Provider] - Follow up with primary Deo Porras MD [Staff Provider] - Follow up with primary Forms: [employer] (Slovenian), WORK NOTE
--- NOTE | 2016-10-28 12:19 | RAD ---
HISTORY: cva COMPARISON: No prior. FINDINGS: LUNGS: No active pulmonary disease. PLEURA: No significant pleural effusion identified, no pneumothorax apparent. CARDIOVASCULAR: Normal. OSSEOUS STRUCTURES: No significant abnormalities. VISUALIZED UPPER ABDOMEN: Normal. OTHER FINDINGS: None. IMPRESSION: No active disease.
[2016-10-28] MEDS ORDERED: Gadodiamide 287 MG/ML VIAL (20ML) IV ONE (12:47)
--- NOTE | 2016-10-28 13:10 | MRI ---
PROCEDURE: MRI BRAIN WITH AND WITHOUT CONTRAST HISTORY: headache r/o cva COMPARISON: None. TECHNIQUE: Multiplanar, multisequence MR images of the brain were obtained with and without intravenous contrast enhancement. 20 cc of Omniscan FINDINGS: HEMORRHAGE: None DWI: No evidence of an acute or early subacute infarction. BRAIN PARENCHYMA: No mass,mass effect or edema. No atrophy or chronic microvascular ischemic changes. ENHANCEMENT: No abnormal intracranial enhancement. VENTRICLES: Unremarkable. No hydrocephalus. CRANIUM: Unremarkable. ORBITS: Grossly unremarkable. PARANASAL SINUSES/MASTOIDS: Clear VASCULAR SYSTEM: Skull base flow voids intact. OTHER FINDINGS: None . IMPRESSION: Unremarkable pre and post contrast enhanced MRI of the brain.
--- NOTE | 2016-10-28 13:12 | MRI ---
PROCEDURE: Magnetic Resonance Angiography Brain HISTORY: headache r/o aneursym COMPARISON: None available. TECHNIQUE: 3D time of flight MR angiography of the intracranial arteries was performed. Rotating maximum intensity projection images were generated. FINDINGS: INTERNAL CEREBRAL ARTERIES: Unremarkable. The skull base, petrous, cavernous and supraclinoid segments are bilaterally widely patient. ANTERIOR CEREBRAL ARTERIES: Unremarkable. A1 and A2 segments are widely patent. Smaller distal branches unremarkable, as visualized. MIDDLE CEREBRAL ARTERIES: Unremarkable. M1 and M2 segments are widely patent. Perisylvian branches grossly symmetric. POSTERIOR CIRCULATION: Basilar Artery: Unremarkable. Distal Vertebral Arteries: Unremarkable. Posterior Cerebral Arteries: Unremarkable. Posterior Inferior Cerebellar Arteries: Unremarkable. ANEURYSM/ VASCULAR MALFORMATIONS: None. OTHER FINDINGS: None. IMPRESSION: Unremarkable MR angiography of the brain.
--- NOTE | 2016-10-28 13:14 | MRI ---
PROCEDURE: MR Angiography of the neck without contrast HISTORY: headache r/o aneursym COMPARISON: None available. TECHNIQUE: 3D [id number] angiography of the neck was performed. Rotating maximum intensity projection images of the cervical carotid and vertebral arteries were generated. The origins of the common carotid arteries were not visualized, which is a limitation inherent to the non-contrast time of flight technique. FINDINGS: RIGHT CAROTID ARTERIES: Common Carotid Artery: Normal. Carotid Bifurcation: Normal. Internal Carotid Artery:Normal. External Carotid Artery (proximal branches): Normal. LEFT CAROTID ARTERIES: Common Carotid Artery: Normal. Carotid Bifurcation: Normal. Internal Carotid Artery:Normal. External Carotid Artery (proximal branches): Normal. VERTEBRAL ARTERIES: Right Vertebral Artery: Normal. Left Vertebral Artery: Normal. OTHER FINDINGS: None. IMPRESSION: Normal MR Angiography of the neck.
[2016-10-28] MEDS ORDERED: DiphenhydrAMINE 50 mg/ml Inj IVP STA (13:57)
[2016-10-28] MEDS ORDERED: Aspirin 325 mg EC Tablets PO STA (13:57)
--- NOTE | 2016-10-28 14:28 | CARD ---
APPROVED REPORT EKG Measurement Heart [id number] <Conclusion> Normal sinus rhythm Normal ECG
[2016-10-28 16:05] VITALS: BP 108/63; PULSE 60; RESP 19; O2SAT 99
== END 2016-10-28 16:14 | disposition home or self-care (01) ==
LOC: ED 10:40
DX: R51 Headache (principal)
CPT/HCPCS: 70450; 70544; 70547; 70553; 71010; 80053; 80061; 83036; 84484; 85025; 85610; 85730; 86850; 86870; 86900; 93005; 96374; 96375; 99285; A9579; J1200; J2765